=== PATIENT | female | born 1945 | race Caucasian/White ===

== ENCOUNTER 2017-03-07 20:30 | Inpatient (IN) | payer MEDICARE, OTHER ==
--- NOTE | ~2017-03-07 | CT57 ---
[facility] A Service of [facility] RADIOLOGY TEXT RESULTS PATIENT: JAMES MALONEY LOCATION: [facility] [id number] : [birth year] UNIT #: [id number] AGE: [address]: Rimma Segura MD SEX: F ORDER DR: [id number] [facility] [address] [place], [place] [address] [id number] MR#: [id number] #: [id number] NAME: JAMES MALONEY : 1945 SEX: F STUDY DATE/TIME: 03/08/2017 02:55 UNIT: [facility] ROOM: 77292 STUDY DESCRIPTION: CT Chest Wo Cont Attending Physician: Rimma Segura M.D. Ordering Physician: Rimma Segura M.D. Primary Care Physician: No Primary Care Physician MEDICAL IMAGING REPORT This report is preliminary unless electronic signature is present EXAM Chest CT, 03/08 at 02:55. INDICATIONS Right sided chest pain radiating to the back that started yesterday with some associated shortness of air. TECHNIQUE Axial images were obtained through the chest without contrast. Multiplanar reformats were obtained. No comparison chest CT. This CT exam was performed with one or more of the following radiation dose reduction techniques: automatic exposure control, adjustment of mA and/or kV according to patient size, and iterative reconstruction. FINDINGS There is a trace amount of right pleural fluid. No significant left pleural fluid is seen and there is no pericardial effusion. There is coronary artery disease. There is patchy infiltrate in the right middle lobe worrisome for pneumonia. Alveolar consolidations in the lower lobes may simply reflect atelectasis. Pneumonia not completely excluded. No pneumothorax is seen. No adenopathy. Upper abdomen shows atherosclerotic disease. IMPRESSION 1. Right middle lobe pneumonia. 2. Trace right pleural effusion. 3. Consolidations in both lower lobes probably reflect atelectasis although pneumonia is not completely excluded radiographically. 4. Atherosclerotic disease. Dictated by... Cirilo Connelly Jr., M.D. [facility] A Service of [facility] RADIOLOGY TEXT RESULTS PATIENT: JAMES MALONEY LOCATION: [facility] [id number] : [birth year] UNIT #: [id number] AGE: [address]: Rimma Segura MD SEX: F ORDER DR: THIS IS AN ELECTRONICALLY VERIFIED REPORT Cirilo Connelly Jr., M.D. at 03/08/2017 6:11 AM MIRTHA/haydee TD: 03/08/2017 05:21 JOB #: [id number] MEDICAL IMAGING REPORT Page 1 of 1 COPY
--- NOTE | ~2017-03-07 | EKG ---
PATIENT: JAMES MALONEY UNIT #: [id number] Ventricular Rate: 74 BPM Atrial Rate: 74 BPM P-R Interval: 202 ms QRS Duration: 102 ms Q-T Interval: 444 ms QTC Calculation(Bezet): 492 ms P [place]: 62 degrees Calculated R Eads: -24 degrees Calculated T Eads: 54 degrees Diagnosis Line: Sinus rhythm with occasional Premature ventricular Diagnosis Line: complexes Diagnosis Line: Poor R wave progression questionable lead position Diagnosis Line: or body habitus Diagnosis Line: Nonspecific ST and T wave abnormality Diagnosis Line: Abnormal ECG Diagnosis Line: No previous ECGs available Diagnosis Line: Confirmed by JUNITO GARCIA MD ([id number]) on Diagnosis Line: 03/09/2017 6:37:07 AM INTERPRETING MD: TIMMY
--- NOTE | ~2017-03-07 | EKG ---
PATIENT: JAMES MALONEY UNIT #: [id number] Ventricular Rate: 82 BPM Atrial Rate: 82 BPM P-R Interval: 168 ms QRS Duration: 102 ms Q-T Interval: 394 ms QTC Calculation(Bezet): 460 ms P [place]: 53 degrees Calculated R [place]: -25 degrees Calculated T [place]: 37 degrees Diagnosis Line: Normal sinus rhythm Diagnosis Line: Normal ECG Diagnosis Line: When compared with ECG of 07-MAR-2017 20:36, Diagnosis Line: (unconfirmed) Diagnosis Line: Premature ventricular complexes are no longer Diagnosis Line: Present Diagnosis Line: Confirmed by JUNITO GARCIA MD ([id number]) on Diagnosis Line: 03/09/2017 6:51:36 AM INTERPRETING MD: TIMMY
--- NOTE | ~2017-03-07 | DS ---
Unit #: [id number] #: [id number] Patient: JAMES MALONEY [id number] [address] [address] [id number] I MR#: [id number] NAME: JAMES MALONEY ROOM: 306 Age: 72 Sex: F Admission Date: 03/10/2017 : 1945 Discharge Date: 03/12/2017 Attending Physician: Max Mayberry M.D. Primary Care Physician: No Primary Care Physician DISCHARGE SUMMARY DIAGNOSIS ON ADMISSION Right chest pain. DIAGNOSES ON DISCHARGE 1. Right pleuritic chest pain, resolved. 2. Right middle lobe pneumonia. 3. Acute respiratory failure, resolved. 4. Hypertension. 5. Hypothyroidism. 6. Type 2 diabetes mellitus. 7. Paroxysmal atrial fibrillation. 8. Gastroesophageal reflux disease. 9. Autoimmune hepatitis. 10. Degenerative joint disease. LABS AND PROCEDURES DONE The patient's creatinine is 0.9, sodium 138, potassium is 3.7. AST and ALT were within normal limits. WBC 6.4, hemoglobin is 12.9, platelet count is 272. Urinalysis reveals 10-25 WBCs. Urine culture revealed 30,000 mixed growth. Blood culture did not reveal any growth so far. Influenzae A and B screen was negative. BNP was 83. The patient had a CT scan of chest done without contrast which revealed right middle lobe pneumonia. There was trace right pleural effusion. The patient's cardiac enzymes were negative. HOSPITAL COURSE 72-year-old patient was admitted to [facility] with right sided chest pain. Details are as per admission H and P. Right sided chest pain: It was pleuritic in nature and is secondary to pneumonia. Cardiac enzymes are negative. The pain is much better now. Unit #: [id number] #: [id number] Patient: JAMES MALONEY Right middle lobe pneumonia: The patient was treated with IV antibiotics. She is afebrile and feels much better now. Acute respiratory failure: The patient's pulse ox is 96% on room air. Today, patient is comfortable, feels good and is anxious to go home. On physical examination vital signs reveal temperature of 97.3, pulse is 60/minute, respiratory rate is 16/minute, blood pressure is 127/69. HEENT: No conjunctival congestion. Sclerae is not icteric. NECK: Supple. Trachea is central. RESPIRATORY: Decreased breath sounds bilaterally. There are no wheezes or crackles. HEART: Regular rate and rhythm. S1, S2. ABDOMEN: Soft, nontender. Bowel sounds are present in all four quadrants. NEUROLOGICAL: The patient is alert to person, place and time and is able to move all extremities. Power is 5/5 bilaterally. SKIN: Warm and dry. RECOMMENDATIONS ON DISCHARGE Condition is stable. Activity as tolerated. MEDICATIONS 1. Tylenol 650 mg p.o. q.6 hours p.r.n. 2. Eliquis 5 mg p.o. b.i.d. 3. Cymbalta 60 mg p.o. daily. 4. Vistaril 25 mg p.o. t.i.d. 5. Norvasc 5 mg p.o. daily. 6. Flecainide 100 mg p.o. q. h.s. 7. Toprol XL 50 mg p.o. daily. 8. Lisinopril 20 mg p.o. daily. 9. Ultram 50 mg p.o. t.i.d. which is a home medication. 10. Protonix 20 mg p.o. daily. 11. Potassium chloride 20 mEq p.o. daily. 12. Amaryl 2 mg p.o. b.i.d. 13. Synthroid 50 mcg p.o. daily. 14. Omnicef 300 mg p.o. b.i.d. for one week. FOLLOWUP 1. The patient is advised to follow up with primary care physician in one week and have a CBC and BMP done. 2. The patient is advised to call primary care physician or go to the ER if her condition changes. 3. We will arrange home health regarding home PT, OT and nursing. The plan was discussed in detail with patient who showed complete understanding. The patient was advised to call primary care physician or go to ER if her condition changes. The patient stated that she is from [place] and will be here for two months. I will request social services assistant to assist patient in finding her primary care physician. Unit #: [id number] #: [id number] Patient: JAMES MALONEY Dictated by... Neo Holguin/df TD: 03/12/2017 13:28 JOB #: [id number] DISCHARGE SUMMARY Page 1 of 1 X Max Mayberry MD X DISCHARGE SUMMARY
--- NOTE | ~2017-03-07 | HP ---
Unit #: [id number] #: [id number] Patient: JAMES MALONEY [id number] [address] [place], [place] [address] [id number] I MR#: [id number] NAME: JAMES MALONEY ROOM: 33857 Age: 72 Sex: F Admission Date: 03/08/2017 : 1945 Attending Physician: Rimma Segura M.D. Primary Care Physician: No Primary Care Physician HISTORY AND PHYSICAL CHIEF COMPLAINT Pleuritic, right chest and right back pain. HISTORY This pleasant 72-year-old female with paroxysmal atrial fibrillation, hypertension, AODM, is admitted for pleuritic right chest and right back pain. Patient states that she was well until yesterday afternoon when she developed sudden sharp right upper back, right chest pain worse with inspiration and movement. Has minor cough with the above only. No fevers, sweats or chills. Feels a little short of breath when attempting to breath only because it causes pain. The patient is anticoagulated with Eliquis. Denies calf pain with the above. She presented to this emergency department late last evening where she is noted to have paroxysmal atrial fibrillation. Chest x-ray was read as possible mild CHF and atelectasis, but patient's BNP is only 83. In the ER she was given Zofran, morphine, and referred for admission. Her pain is producible to palpation, particularly when I percuss over the right upper back. No abdominal tenderness with the above. PAST MEDICAL HISTORY 1. Essential hypertension. 2. Paroxysmal atrial fibrillation, status post radiofrequency ablation. Patient is anticoagulated with Eliquis. 3. AODM. 4. Hypothyroidism. 5. GERD. 6. DJD. 7. Autoimmune hepatitis. 8. Right carpal tunnel release. 9. Right Alejandra cyst excised. 10. Cataract extraction. 11. Sebaceous cyst excised. 12. Total abdominal hysterectomy. 13. Sinus surgery. ALLERGIES Penicillin, codeine, nonsteroidal anti-inflammatory drugs, Imuran, Flexeril, and trimethoprim. Patient had a stated allergy to Keflex but this only causes a yeast infection. FAMILY HISTORY CAD and CVA. Unit #: [id number] #: [id number] Patient: SKRODENIS,JAMES SOCIAL HISTORY The patient lives alone in [place], but plans to return to live with her son in [place]. She recently drove seven hours from [place] to [place]. Smokes 1/2 pack per day of tobacco. Does not drink alcohol. REVIEW OF SYSTEMS Notable for pleuritic right back and right chest pain, hypertension, PAF, AODM, hypothyroidism, GERD, DJD, autoimmune hepatitis, above mentioned surgeries and tobacco abuse. All other systems were reviewed and are otherwise negative. PHYSICAL EXAMINATION GENERAL: Pleasant, moderately obese, 72-year-old female who currently is in no acute distress. VITAL SIGNS: Temperature 98.8, pulse 80, respirations 20, blood pressure 157/82, O2 saturation 98% on room air. HEENT: Eyes - PERRLA, extraocular muscles are intact. Pharynx is benign. NECK: Supple without adenopathy or thyromegaly. CHEST: Chest reveals a few crackles at the bases. CARDIAC: Normal S1 and S2. Occasionally irregular without definite murmur. BACK: With reproducible right upper back tenderness, which then radiates to the right chest region. No rashes that I can see. ABDOMEN: Bowel sounds are present. No hepatosplenomegaly, tenderness or masses. EXTREMITIES: Without clubbing, cyanosis or edema. Pedal pulses are diminished but present. No ulcers on the feet. NEUROLOGIC: Patient is awake, alert, and oriented. Cranial nerves are intact. Equal strength throughout. DIAGNOSTIC STUDIES ADMISSION LABS: Hematocrit is 43, white blood count is 12.8, normal platelet count. Negative cardiac markers. Normal coags. SMA 12 - glucose is 60, chloride 99, alk phos 163, normal BNP. IMAGING STUDIES: Chest x-ray - atelectasis, some possible mild edema noted. CARDIOLOGY STUDIES: EKG - sinus rhythm, rate 74, Q's noted in V1 and V2, occasional APC noted, left axis deviation. ASSESSMENT 1. Right upper back to right pleuritic chest pain, also worse with movement. Rule out occult pneumonia, could be musculoskeletal, doubt PE, as patient currently is anticoagulated. 2. Paroxysmal atrial fibrillation on Eliquis. 3. Kidney disease. 4. AODM, patent is hypoglycemic with a serum glucose of 60. 5. Hypertension. 6. Autoimmune hepatitis. 7. Hypothyroidism. PLANS 1. Obtain a CT scan of the chest without contrast, given patient's GFR is only 37 and that she is anticoagulated. However, I will ask for a D-dimer and venous Dopplers. 2. Hold Amaryl for now as patient is hypoglycemic. Unit #: [id number] #: [id number] Patient: JAMES MALONEY 3. Pain control. 4. Further plans after CT scan is performed. Dictated by Rimma Segura M.D. AML/ts TD: 03/08/2017 05:41 JOB #: [id number] HISTORY AND PHYSICAL Page 1 of 1 X Rimma Segura MD X HISTORY AND PHYSICAL
--- NOTE | ~2017-03-07 | CR72 ---
[facility] A Service of [facility] RADIOLOGY TEXT RESULTS PATIENT: JAMES MALONEY [facility] [birth year] UN[facility] #: [id number] AGE: [address]: Rimma Segura MD SEX: F ORDER DR: [id number] [facility] [address] [place], [place] [address] [id number] E MR#: [id number] Acc #: [id number] NAME: JAMES MALONEY : 1945 SEX: F STUDY DATE/TIME: 03/07/2017 22:20 UNIT: [facility] ROOM: STUDY DESCRIPTION: CR Chest Single View Portable Attending Physician: Ganga Alcala D.O. Ordering Physician: Ed Eduardo Fitch M.D. Primary Care Physician: Primary Care Physician No MEDICAL IMAGING REPORT This report is preliminary unless electronic signature is present EXAM Portable chest 03/07/2017 at 2220 hours INDICATION Right-side chest pain, shortness of air that started today. FINDINGS AP portable chest was obtained. No comparison. The heart is enlarged. There is some mild vascular congestion. Interstitial opacities may reflect mild developing edema. There is some mild atelectasis in the bases. No pneumothorax. IMPRESSION Cardiomegaly with vascular congestion. Interstitial opacities suggest developing edema. Bibasilar atelectasis. Dictated by... Cirilo Connelly Jr., M.D. THIS IS AN ELECTRONICALLY VERIFIED REPORT Cirilo Connelly Jr., M.D. at 03/08/2017 6:08 AM MIRTHA/porsha TD: 03/07/2017 22:57 JOB #: [id number] MEDICAL IMAGING REPORT Page 1 of 1 COPY
[2017-03-07 21:42] LABS: BASOPHIL# 0.1 X10e3 (0-0.3); BASOPHIL% 0.4 % (0-2.5); EOSINOPHIL# 0.1 X10e3 (0-0.7); EOSINOPHIL% 0.9 % (0.0-7.0); HEMOGLOBIN 14.4 gm/dL (12.0-16.0); LYMPHOCYTE# 1.2 X10e3 (1.0-3.5); LYMPHOCYTE% 9.7 % (17.0-45.0); MEAN CELL VOLUME 95.8 FL (83-96); MEAN CORPUSCULAR HEMOGLOBIN 32.2 PG (28-34); MEAN CORPUSCULAR HGB CONC 33.6 g/dL (30-36); MEAN PLATELET VOLUME 7.8 FL (6.5-11.5); MONOCYTE# 1.1 X10e3 (0-1.0); MONOCYTE% 8.2 % (3.0-12.0); NEUTROPHIL# 10.3 X10e3 (1.5-7.1); NEUTROPHIL% 80.8 % (40-75); PLATELET COUNT 248 X10e3 (140-420); RED BLOOD COUNT 4.48 X10e (3.90-5.30); WHITE BLOOD COUNT 12.8 X10e3 (4.0-10.5)
[2017-03-07 21:43] LABS: DIFF IND NO
[2017-03-07 21:56] LABS: PARTIAL THROMBOPLASTIN TIME 29.4 SECONDS (23.5-31.3); PROTHROMBIN TIME (PATIENT) 11.2 SECONDS (10.0-11.7)
[2017-03-07 22:01] LABS: POC - CKMB <1.0 ng/mL (0.0-7.9); POC - TROPONIN <0.05 ng/mL (<=0.05)
[2017-03-07 22:08] LABS: ALBUMIN SERUM 4.1 g/dL (3.5-5.0); BILIRUBIN, DIRECT 0.2 mg/dL (0.0-0.2); BILIRUBIN,INDIRECT 0.6 mg/dL (0.0-0.9); BILIRUBIN,TOTAL 0.8 mg/dL (0.2-2.0); CALCIUM SERUM 9.2 mg/dL (8.4-10.2); CREATININE SERUM 1.4 mg/dL (0.6-1.4); GLOM FILT RATE Estimated 37.4 mL/min (>60); POTASSIUM 3.5 mmol/L (3.5-5.1); PROTEIN TOTAL SERUM 7.6 g/dL (6.0-8.3)
[2017-03-07 23:40] LABS: POC - CKMB <1.0 ng/mL (0.0-7.9); POC - TROPONIN <0.05 ng/mL (<=0.05)
[2017-03-08] MEDS ORDERED: VISTARIL PO (01:53)
[2017-03-08] MEDS ORDERED: ELIQUIS5 MG PO (01:53)
[2017-03-08] MEDS ORDERED: K-DUR20 ME2 PO (01:53)
[2017-03-08] MEDS ORDERED: SYNTHROID0.05 MG PO (01:54)
[2017-03-08] MEDS ORDERED: TRAMADOL HCL50 M1 PO (01:54)
[2017-03-08] MEDS ORDERED: PANTOPRAZOLE SO20 MG PO (01:55)
[2017-03-08] MEDS ORDERED: DULOXETINE HCL60 MG PO (01:55)
[2017-03-08] MEDS ORDERED: AMLODIPINE BESYL5 MG PO (01:55)
[2017-03-08] MEDS ORDERED: PRINIVIL20 M1 PO (01:56)
[2017-03-08] MEDS ORDERED: AMARYL2 MG PO (01:56)
[2017-03-08] MEDS ORDERED: FLECAINIDE ACE100 MG PO (01:56)
[2017-03-08] MEDS ORDERED: METOPROLOL SUCC50 MG PO (01:57)
[2017-03-08 05:12] LABS: URINE SOURCE CLEAN CATCH
[2017-03-08 05:20] LABS: BASOPHIL% 0.4 % (0-2.5); EOSINOPHIL% 0.2 % (0.0-7.0); HEMATOCRIT 41.1 % (35.0-45.0); HEMOGLOBIN 13.8 gm/dL (12.0-16.0); LYMPHOCYTE# 1.2 X10e3 (1.0-3.5); LYMPHOCYTE% 9.2 % (17.0-45.0); MEAN CELL VOLUME 96.4 FL (83-96); MEAN CORPUSCULAR HEMOGLOBIN 32.5 PG (28-34); MEAN CORPUSCULAR HGB CONC 33.7 g/dL (30-36); MEAN PLATELET VOLUME 8.4 FL (6.5-11.5); MONOCYTE# 1.1 X10e3 (0-1.0); MONOCYTE% 8.9 % (3.0-12.0); NEUTROPHIL# 10.5 X10e3 (1.5-7.1); NEUTROPHIL% 81.3 % (40-75); PLATELET COUNT 235 X10e3 (140-420); RED BLOOD COUNT 4.26 X10e (3.90-5.30); WHITE BLOOD COUNT 12.9 X10e3 (4.0-10.5)
[2017-03-08 05:21] LABS: DIFF IND NO
[2017-03-08 05:25] LABS: URINE APPEARANCE HAZY; URINE BILIRUBIN NEG (NEG); URINE BLOOD NEG (NEG); URINE COLOR YELLOW; URINE GLUCOSE NORM (NORM); URINE KETONE NEG (NEG); URINE LEUKOCYTE ESTERASE 3+ (NEG); URINE NITRATE NEG (NEG); URINE PROTEIN 1+ (NEG); URINE UROBILINOGEN NORM (NORM)
[2017-03-08 05:36] LABS: CULTURE INDICATED? YES; URINE BACTERIA AUWI 1+ (NEGATIVE); URINE SQUAMOUS EPITHELIAL CELL MODERATE /[HPF]
[2017-03-08 07:01] LABS: BUN/CREATININE RATIO 13.07; CALCIUM SERUM 8.8 mg/dL (8.4-10.2); CREATININE SERUM 1.3 mg/dL (0.6-1.4); POTASSIUM 3.7 mmol/L (3.5-5.1)
[2017-03-08 18:26] LABS: CK TOTAL 22 IU/L (26-140)
[2017-03-09 00:57] LABS: CK TOTAL 25 IU/L (26-140)
[2017-03-09 03:25] LABS: INFLUENZA A NEG (NEG); INFLUENZA B NEG (NEG)
[2017-03-09 07:01] LABS: HEMATOCRIT 41.2 % (35.0-45.0); HEMOGLOBIN 13.8 gm/dL (12.0-16.0); MEAN CORPUSCULAR HEMOGLOBIN 32.5 PG (28-34); MEAN CORPUSCULAR HGB CONC 33.5 g/dL (30-36); MEAN PLATELET VOLUME 8.9 FL (6.5-11.5); RED BLOOD COUNT 4.25 X10e (3.90-5.30); WHITE BLOOD COUNT 9.6 X10e3 (4.0-10.5)
[2017-03-09 07:38] LABS: BUN/CREATININE RATIO 15.45; CALCIUM SERUM 8.6 mg/dL (8.4-10.2); CREATININE SERUM 1.1 mg/dL (0.6-1.4); GLOM FILT RATE Estimated 50.1 mL/min (>60); POTASSIUM 3.8 mmol/L (3.5-5.1)
[2017-03-10 06:49] LABS: BUN/CREATININE RATIO 18.33; CALCIUM SERUM 8.5 mg/dL (8.4-10.2); CREATININE SERUM 1.2 mg/dL (0.6-1.4); GLOM FILT RATE Estimated 45.1 mL/min (>60)
[2017-03-10 07:22] LABS: HEMATOCRIT 36.6 % (35.0-45.0); HEMOGLOBIN 12.3 gm/dL (12.0-16.0); MEAN CELL VOLUME 96.4 FL (83-96); MEAN CORPUSCULAR HEMOGLOBIN 32.3 PG (28-34); MEAN CORPUSCULAR HGB CONC 33.6 g/dL (30-36); RED BLOOD COUNT 3.8 X10e (3.90-5.30); RED CELL DISTRIBUTION WIDTH 12.9 % (11.0-15.5)
[2017-03-12 06:40] LABS: HEMATOCRIT 37.7 % (35.0-45.0); HEMOGLOBIN 12.9 gm/dL (12.0-16.0); MEAN CELL VOLUME 95.7 FL (83-96); MEAN CORPUSCULAR HEMOGLOBIN 32.6 PG (28-34); MEAN CORPUSCULAR HGB CONC 34.1 g/dL (30-36); MEAN PLATELET VOLUME 8.4 FL (6.5-11.5); RED BLOOD COUNT 3.94 X10e (3.90-5.30); RED CELL DISTRIBUTION WIDTH 12.8 % (11.0-15.5); WHITE BLOOD COUNT 6.4 X10e3 (4.0-10.5)
[2017-03-12 07:36] LABS: BUN/CREATININE RATIO 15.55; CALCIUM SERUM 9.1 mg/dL (8.4-10.2); CREATININE SERUM 0.9 mg/dL (0.6-1.4); GLOM FILT RATE Estimated 63.9 mL/min (>60); POTASSIUM 3.7 mmol/L (3.5-5.1)
[2017-03-12] MEDS ORDERED: TYL325 PO (14:35)
[2017-03-12] MEDS ORDERED: OMNICEF300 M1 PO (14:37)
== END 2017-03-12 16:24 | disposition home or self-care (01) | DRG 871 ==
LOC: CED 20:30 → C3A PCU 03-08 02:30 → CEDOF 03-08 02:30 → CED 03-08 02:30 → CEDOF 03-08 02:43 → C3A PCU 03-08 02:43 → CED 03-08 02:43 → CEDOF 03-08 07:48 → C3A PCU 03-08 13:06 → CEDOF 03-08 13:06 → C3A PCU 03-08 13:06 → CEDOF 03-10 10:00 → C3A PCU 03-12 08:09
PROVIDERS: Emergency Medicine; Internal Medicine
DX: A41.9 Sepsis, unspecified organism (principal); J18.9 Pneumonia, unspecified organism; J96.01 Acute respiratory failure with hypoxia; I48.0 Paroxysmal atrial fibrillation; K75.4 Autoimmune hepatitis; E11.649 Type 2 diabetes mellitus with hypoglycemia without coma; R07.9 Chest pain, unspecified; I10 Essential (primary) hypertension; Z79.84 Long term (current) use of oral hypoglycemic drugs; Z79.01 Long term (current) use of anticoagulants; E03.9 Hypothyroidism, unspecified; K21.9 Gastro-esophageal reflux disease without esophagitis; M19.90 Unspecified osteoarthritis, unspecified site; Z98.49 Cataract extraction status, unspecified eye; Z90.710 Acquired absence of both cervix and uterus; Z88.0 Allergy status to penicillin; E66.9 Obesity, unspecified; Z68.35 Body mass index [BMI] 35.0-35.9, adult
CPT/HCPCS: 36415; 71010; 71250; 80048; 80076; 81003; 82550; 82553; 82947; 83605; 83880; 84484; 85025; 85027; 85610; 85730; 87040; 87086; 87804; 93005; 94760; 96374; 96375; 97161; 99285; G8978-GP; G8979-GP; G8980-GP; J0696; J2270; J2405